=== PATIENT | male | born 1960 | race Caucasian/White ===

== ENCOUNTER 2018-01-29 09:07 | Emergency (ER) | payer MEDICAID ==
[~2018-01-29] VITALS: Ht 182.9 cm; Wt 106.6 kg
[2018-01-29 09:30] VITALS: BP 129/91
== END 2018-01-29 09:54 | disposition home or self-care (01) ==
LOC: ER 09:07
DX: S63.91XA Sprain of unspecified part of right wrist and hand, initial encounter (principal); F17.210 Nicotine dependence, cigarettes, uncomplicated; W11.XXXA Fall on and from ladder, initial encounter; Y93.89 Activity, other specified; Y99.8 Other external cause status; Y92.89 Other specified places as the place of occurrence of the external cause
CPT/HCPCS: 73130

== ENCOUNTER 2019-11-28 21:27 | Emergency (ER) | payer MEDICAID ==
[~2019-11-28] VITALS: Ht 182.9 cm; Wt 108.9 kg
[2019-11-29] MEDS ORDERED: KETOROLAC TROMETH 60MG/2ML VIAL IM ONE (01:45)
[2019-11-29] MEDS ORDERED: methylPREDNISolone SOD SUCC 125 MG/2 ML VL IM ONE (01:45)
[2019-11-29 01:46] VITALS: BP 134/72
== END 2019-11-29 02:39 | disposition home or self-care (01) ==
LOC: ER 21:31
DX: M25.562 Pain in left knee (principal); M10.9 Gout, unspecified; F17.210 Nicotine dependence, cigarettes, uncomplicated
CPT/HCPCS: 73560; 96372; 99284; J1885; J2930